=== PATIENT | female | born 1965 | race Caucasian/White ===

== ENCOUNTER → 2016-06-28 | Outpatient (CLI) | payer BC ==
--- NOTE | 2016-06-28 14:13 | MR ---
EXAMINATION: MR of the head without contrast. TECHNIQUE: Multiplanar and multisequence imaging of the head without intravenous contrast. Diffusion weighted sequences were performed. HISTORY: Hemiplegia. FINDINGS: The cerebral hemispheres and deep nuclei are without hemorrhage, mass, edema or atrophy. Small very subtle T2 FLAIR hyperintensities in the periventricular white matter. No evidence for restricted dif fusion. No extraaxial collections or hemorrhage. Ventricular system is of normal size and configuration wit hout hydrocephalus. The brainstem and cerebellum are without hemorrhage, mass, edema, gliosis or atr ophy. The carotid and basilar artery flow voids are intact. The otomastoid airspaces are clear. No internal auditory canal or cerebellopontine angle masses. Mi ld mucosal thickening noted within the right maxillary sinus. Craniocervical junction is unremarkable. IMPRESSION: 1. There are a few tiny periventricular and subcortical white matter FLAIR signal intensities, nonsp ecific, possibly early small vessel ischemic changes. 2. Otherwise no acute intracranial findings.
== END ==
LOC: MW.MRI 08:10
PROVIDERS: ATTEND Family Medicine
DX: G81.90 Hemiplegia, unspecified affecting unspecified side (principal)
CPT/HCPCS: 70551; 70551-26

== ENCOUNTER → 2016-07-17 | Outpatient (CLI) | payer BC | LOC: MW.RT 13:04 | PROVIDERS: ATTEND Family Medicine | DX: G81.90 Hemiplegia, unspecified affecting unspecified side (principal) | CPT/HCPCS: 95816 ==

== ENCOUNTER 2019-01-16 13:53 | Emergency (ER) | payer BC ==
[2019-01-16] MEDS ORDERED: Sodium Chloride 0.9% 1,000 ML IV ONE ×3 (14:12→16:01)
[2019-01-16] MEDS ORDERED: Ondansetron 4 MG/2 ML SDV IVPUSH ONE (14:12)
--- NOTE | 2019-01-16 14:15 | EDM.PDOC ---
ED HPI GENERAL MEDICAL PROBLEM - General Chief Complaint: Abdominal Pain Stated Complaint: VOMITING Time Seen by Provider: 01/16/19 14:15 Source of Information: Reports: Patient - History of Present Illness INITIAL COMMENTS - FREE TEXT/NARRATIVE: HISTORY AND PHYSICAL: History of present illness: [Patient presents with 2 days of abdominal pain 7 out of 10 nonradiating diffuse pain on exam worse on the left denies trauma recently started Celebrex otherwise no blood thinners no fever chills or sweats no chest pain shortness breath headache dizziness palpitation about a urine symptoms ] Review of systems: As per history of present illness and below otherwise all systems reviewed and negative. Past medical history: As per history of present illness and as reviewed below otherwise noncontributory. Surgical history: As per history of present illness and as reviewed below otherwise noncontributory. Social history: No reported history of drug or alcohol abuse. Family history: As per history of present illness and as reviewed below otherwise noncontributory.\ Physical exam: HEENT: Atraumatic, normocephalic, pupils reactive, negative for conjunctival pallor or scleral icterus, mucous membranes moist, throat clear, neck supple, nontender, trachea midline. Lungs: Clear to auscultation, breath sounds equal bilaterally, chest nontender. Heart: S1S2, regular, negative for clicks, rubs, or JVD. Abdomen: Soft, nondistendeddiffuse tenderness with focus on the left lower quadrantve for masses or hepatosplenomegaly. Negative for costovertebral tenderness. Pelvis: Stable nontender. Genitourinary: Deferred. Rectal: Deferred. Extremities: Atraumatic, negative for cords or calf pain. Neurovascular unremarkable. Neuro: Awake, alert, oriented. Cranial nerves II through XII unremarkable. Cerebellum unremarkable. Motor and sensory unremarkable throughout. Exam nonfocal. Diagnostics: [CC CMP INR UA CT abdomen pelvis no contrast ] Therapeutics: [ renal saline Insulin Zofran Morphine I did consult with Dr. Goddard recommends transfer for interventional radiology hematoma and hematology follow-up ] Impression: [ capsular hematoma with compression of left kidney Renal insufficiency Electrolyte abnormalities New-onset diabetes Hyperglycemia ] Definitive disposition and diagnosis as appropriate pending reevaluation and review of above. abdomen Pain Score (Numeric/FACES): 9 - Related Data Allergies Allergy/AdvReac Type Severity Reaction Status Date / Time No Known Allergies Allergy Verified 01/16/19 14:04 Home Meds: Home Meds Celecoxib [CeleBREX] 1 tab PO BID 01/16/19 [History] DULoxetine [Cymbalta] 1 tab PO BID 01/16/19 [History] LORazepam 0.5 mg PO ASDIRECTED PRN 01/16/19 [History] Metoprolol Succinate [Toprol XL 100mg] 100 mg PO DAILY 01/16/19 [History] busPIRone [Buspar] 15 mg PO BID 01/16/19 [History] Past Medical History HEENT History: Reports: Cataract Cardiovascular History: Reports: Hypertension Respiratory History: Reports: None Gastrointestinal History: Reports: None Genitourinary History: Reports: None 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: Musculoskeletal History: Reports: Arthritis Neurological History: Reports: None Psychiatric History: Reports: Anxiety, Depression Endocrine/Metabolic History: Reports: None Hematologic History: Reports: None Immunologic History: Reports: None Oncologic (Cancer) History: Reports: None Dermatologic History: Reports: None - Infectious Disease History Infectious Disease History: Reports: Chicken Pox - Past Surgical History Head Surgeries/Procedures: Reports: None HEENT Surgical History: Reports: Cataract Surgery Cardiovascular Surgical History: Reports: None Respiratory Surgical History: Reports: None GI Surgical History: Reports: None Female Surgical History: Reports: Section Endocrine Surgical History: Reports: None Neurological Surgical History: Reports: None Musculoskeletal Surgical History: Reports: None Oncologic Surgical History: Reports: None Dermatological Surgical History: Reports: None Social & Family History - Family History Family Medical History: Noncontributory - Tobacco Use Smoking Status *Q: Never Smoker Second Hand Smoke Exposure: No - Caffeine Use Caffeine Use: Reports: Energy Drinks - Recreational Drug Use Recreational Drug Use: No ED ROS GENERAL - Review of Systems Review Of Systems: See Below ED EXAM, GENERAL - Physical Exam Exam: See Below Course - Vital Signs Last Recorded V/S: Last Vital Signs Temp 96.3 F 01/16/19 14:01 Pulse 116 H 01/16/19 14:01 Resp 18 01/16/19 14:01 BP 167/90 H 01/16/19 14:01 Pulse Ox 100 01/16/19 14:01 - Orders/Labs/Meds Orders: Active Orders 24 hr Category Date Time Status Sodium Chloride 0.9% [Normal Saline] 1,000 ml Med 01/16/19 15:56 Active IV .Bolus Sodium Chloride 0.9% [Normal Saline] 1,000 ml Med 01/16/19 16:01 Ordered IV STAT Medication Orders Sodium Chloride (Normal Saline) 1,000 mls @ 999 mls/hr IV .Bolus ONE Stop: 01/16/19 16:56 Last Admin: 01/16/19 16:05 Dose: 999 mls/hr Sodium Chloride (Normal Saline) 1,000 mls @ 999 mls/hr IV STAT ONE Stop: 01/16/19 17:01 Last Admin: 01/16/19 16:05 Dose: Not Given Labs: Laboratory Tests 01/16/19 01/16/19 01/16/19 Range/Units 14:12 14:42 14:42 WBC 11.99 H (4.0-11.0) K/uL RBC 3.54 L (4.30-5.90) M/uL Hgb 9.7 L (12.0-16.0) g/dL Hct 29.2 L (36.0-46.0) % MCV 82.5 (80.0-98.0) fL MCH 27.4 (27.0-32.0) pg MCHC 33.2 (31.0-37.0) g/dL RDW Std Deviation 44.0 (28.0-62.0) fl RDW Coeff of Ho 14 (11.0-15.0) % Plt Count 225 (150-400) K/uL MPV 9.30 (7.40-12.00) fL Neut % (Auto) 88.5 H (48.0-80.0) % Lymph % (Auto) 5.8 L (16.0-40.0) % [place] % (Auto) 5.6 (0.0-15.0) % Eos % (Auto) 0.0 (0.0-7.0) % Baso % (Auto) 0.1 (0.0-1.5) % Neut # (Auto) 10.6 H (1.4-5.7) K/uL Lymph # (Auto) 0.7 (0.6-2.4) K/uL [place] # (Auto) 0.7 (0.0-0.8) K/uL Eos # (Auto) 0.0 (0.0-0.7) K/uL Baso # (Auto) 0.0 (0.0-0.1) K/uL Nucleated RBC % 0.0 /100WBC Nucleated RBCs # 0 K/uL INR Sodium 134 L (136-145) mmol/L Potassium 3.9 (3.5-5.1) mmol/L Chloride 97 L (98-107) mmol/L Carbon Dioxide 11.1 L (21.0-32.0) mmol/L BUN 26 H (7.0-18.0) mg/dL Creatinine 1.4 H (0.6-1.0) mg/dL Est Cr Clr Drug Dosing 40.59 mL/min Estimated GFR (MDRD) 39.5 ml/min Glucose 444 H (74-106) mg/dL POC Glucose (60-110) mg/dL Calcium 9.5 (8.5-10.1) mg/dL Total Bilirubin 0.9 (0.2-1.0) mg/dL AST 10 L (15-37) IU/L ALT 15 (14-63) IU/L Alkaline Phosphatase 121 H (46-116) U/L Troponin I <0.050 (0.000-0.056) ng/mL Total Protein 8.2 (6.4-8.2) g/dL Albumin 2.8 L (3.4-5.0) g/dL Globulin 5.4 H (2.6-4.0) g/dL Albumin/Globulin Ratio 0.5 L (0.9-1.6) Lipase 46 L (73-393) U/L Urine Color YELLOW Urine Appearance CLEAR Urine pH 5.5 (5.0-8.0) Ur Specific [place] 1.025 (1.001-1.035) Urine Protein TRACE H (NEGATIVE) mg/dL Urine Glucose (UA) 500 H (NEGATIVE) mg/dL Urine Ketones >=80 (NEGATIVE) mg/dL Urine Occult Blood LARGE H (NEGATIVE) Urine Nitrite NEGATIVE (NEGATIVE) Urine Bilirubin SMALL H (NEGATIVE) Urine Urobilinogen 0.2 (<2.0) EU/dL Ur Leukocyte Esterase NEGATIVE (NEGATIVE) Urine RBC 3-4 (0-2/HPF) Urine WBC 20-42 (0-5/HPF) Ur Epithelial Cells FEW (NONE-FEW) Amorphous Sediment FEW (NEGATIVE) Urine Bacteria 2+ H (NEGATIVE) Urine Mucus FEW (NONE-MOD) Urine Trichomonas (NEGATIVE) 01/16/19 01/16/19 01/16/19 Range/Units 16:00 16:10 16:47 WBC (4.0-11.0) K/uL RBC (4.30-5.90) M/uL Hgb (12.0-16.0) g/dL Hct (36.0-46.0) % MCV (80.0-98.0) fL MCH (27.0-32.0) pg MCHC (31.0-37.0) g/dL RDW Std Deviation (28.0-62.0) fl RDW Coeff of Ho (11.0-15.0) % Plt Count (150-400) K/uL MPV (7.40-12.00) fL Neut % (Auto) (48.0-80.0) % Lymph % (Auto) (16.0-40.0) % [place] % (Auto) (0.0-15.0) % Eos % (Auto) (0.0-7.0) % Baso % (Auto) (0.0-1.5) % Neut # (Auto) (1.4-5.7) K/uL Lymph # (Auto) (0.6-2.4) K/uL [place] # (Auto) (0.0-0.8) K/uL Eos # (Auto) (0.0-0.7) K/uL Baso # (Auto) (0.0-0.1) K/uL Nucleated RBC % /100WBC Nucleated RBCs # K/uL INR 0.98 Sodium (136-145) mmol/L Potassium (3.5-5.1) mmol/L Chloride (98-107) mmol/L Carbon Dioxide (21.0-32.0) mmol/L BUN (7.0-18.0) mg/dL Creatinine (0.6-1.0) mg/dL Est Cr Clr Drug Dosing mL/min Estimated GFR (MDRD) ml/min Glucose (74-106) mg/dL POC Glucose 371 H 319 H (60-110) mg/dL Calcium (8.5-10.1) mg/dL Total Bilirubin (0.2-1.0) mg/dL AST (15-37) IU/L ALT (14-63) IU/L Alkaline Phosphatase (46-116) U/L Troponin I (0.000-0.056) ng/mL Total Protein (6.4-8.2) g/dL Albumin (3.4-5.0) g/dL Globulin (2.6-4.0) g/dL Albumin/Globulin Ratio (0.9-1.6) Lipase (73-393) U/L Urine Color Urine Appearance Urine pH (5.0-8.0) Ur Specific [place] (1.001-1.035) Urine Protein (NEGATIVE) mg/dL Urine Glucose (UA) (NEGATIVE) mg/dL Urine Ketones (NEGATIVE) mg/dL Urine Occult Blood (NEGATIVE) Urine Nitrite (NEGATIVE) Urine Bilirubin (NEGATIVE) Urine Urobilinogen (<2.0) EU/dL Ur Leukocyte Esterase (NEGATIVE) Urine RBC (0-2/HPF) Urine WBC (0-5/HPF) Ur Epithelial Cells (NONE-FEW) Amorphous Sediment (NEGATIVE) Urine Bacteria (NEGATIVE) Urine Mucus (NONE-MOD) Urine Trichomonas (NEGATIVE) Meds: Medications Generic Name Dose Route Start Last Admin Trade Name Freq PRN Reason Stop Dose Admin Sodium Chloride 1,000 mls @ 999 mls/hr 01/16/19 15:56 01/16/19 16:05 Normal Saline IV 01/16/19 16:56 999 mls/hr .Bolus ONE Administration Sodium Chloride 1,000 mls @ 999 mls/hr 01/16/19 16:01 01/16/19 16:05 Normal Saline IV 01/16/19 17:01 Not Given STAT ONE Discontinued Medications Generic Name Dose Route Start Last Admin Trade Name Freq PRN Reason Stop Dose Admin Sodium Chloride 1,000 mls @ 999 mls/hr 01/16/19 14:12 01/16/19 14:46 Normal Saline IV 01/16/19 15:12 999 mls/hr STAT ONE Administration Insulin Human Regular 10 unit 01/16/19 15:53 01/16/19 16:06 Novolin R IVPUSH 01/16/19 15:54 5 units ONETIME ONE Administration Protocol Insulin Human Regular Confirm 01/16/19 16:13 01/16/19 16:20 Novolin R Administered 01/16/19 16:14 Not Given Dose 1,000 unit .ROUTE .STK-MED ONE Morphine Sulfate 2 mg 01/16/19 15:33 01/16/19 15:41 Morphine IVPUSH 01/16/19 15:34 2 mg ONETIME ONE Administration Ondansetron HCl 8 mg 01/16/19 14:12 01/16/19 14:47 Zofran IVPUSH 01/16/19 14:13 8 mg ONETIME ONE Administration Departure - Departure Time of Disposition: 16:51 Disposition: DC/Tfer to Acute Hospital 02 Condition: Fair Clinical Impression: Hematoma, Dehydration, Diabetes - Discharge Information Referrals: Zhane Painter DO [Primary Care Provider] - Forms: ED Department Discharge - My Orders Last 24 Hours: My Active Orders 01/16/19 15:56 Sodium Chloride 0.9% [Normal Saline] 1,000 ml IV .Bolus 01/16/19 16:01 Sodium Chloride 0.9% [Normal Saline] 1,000 ml IV STAT - Assessment/Plan Last 24 Hours: My Active Orders 01/16/19 15:56 Sodium Chloride 0.9% [Normal Saline] 1,000 ml IV .Bolus 01/16/19 16:01 Sodium Chloride 0.9% [Normal Saline] 1,000 ml IV STAT
[2019-01-16 15:18] LABS: BLOOD UREA NITROGEN,BUN 26 mg/dL (7.0-18.0); CARBON DIOXIDE,CO2 11.1 mmol/L (21.0-32.0); CHLORIDE,CL 97 mmol/L (98-107); GLUCOSE RANDOM 444 mg/dL (74-106); LIPASE 46 U/L (73-393); POTASSIUM,K 3.9 mmol/L (3.5-5.1); SODIUM,NA 134 mmol/L (136-145)
[2019-01-16] MEDS ORDERED: Morphine 2 MG/ML Syringe IVPUSH ONE ×2 (15:33→16:56)
--- NOTE | 2019-01-16 15:33 | CT ---
EXAM DATE: 01/16/19 PATIENT'S AGE: 53 CT abdomen and pelvis Technique: Multiple axial sections were obtained from above the dome of the diaphragm inferiorly through the pubic symphysis. Intravenous and oral contrast not utilized. Findings: Acute subcapsular hematoma is identified within the left kidney. This compresses the left kidney. Haziness is noted around the left kidney is seen believed to be the result of the hematoma. Right kidney appears unremarkable. Gallbladder appears distended. No shadowing gallstones are seen. Visualized lung bases showed nothing acute. Liver contains no focal abnormality. Spleen appears within normal limits. Adrenal glands show no nodule. Pancreas appears within normal limits. Aorta shows atherosclerotic change which continues into the iliac vessels. No aneurysm is seen. No retroperitoneal adenopathy or mesenteric abnormalities are seen. No pelvic mass or adenopathy is seen. Sterilization clips are incidentally noted within the pelvis. Appendix is seen and appears normal in size. No free fluid is seen. Bone window settings were reviewed which shows mild degenerative change scattered within the spine. Degenerative change is most prominent at L5-S1 with vacuum phenomena. Impression: 1. Large acute subcapsular hematoma. This subcapsular hematoma compresses the left kidney and causes mild increased density around the left kidney within the adjacent perirenal fat. 2. Dilated gallbladder. Uncertain if this is pathologic or due to fasting. 3. Other findings as noted above which are believed to be incidental. Diagnostic code #5 Report Signed by Proxy. [facility]ITALKiesha
[2019-01-16] MEDS ORDERED: Insulin Regular, Human 100 Units/ML 10 ML Vial IVPUSH ONE ×2 (15:53→16:57)
[2019-01-16] MEDS ORDERED: Insulin Regular, Human 100 Units/ML 10 ML Vial ONE (16:13)
[2019-01-16] MEDS ORDERED: Sodium Chloride 0.9% 1,000 ML IV SCH ×2 (17:00)
== END 2019-01-16 17:25 ==
LOC: MW.ED 13:53
DX: S37.012A Minor contusion of left kidney, initial encounter (principal); E86.0 Dehydration; E11.65 Type 2 diabetes mellitus with hyperglycemia; N28.9 Disorder of kidney and ureter, unspecified; E87.8 Other disorders of electrolyte and fluid balance, not elsewhere classified; I10 Essential (primary) hypertension; F41.9 Anxiety disorder, unspecified; F32.9 Major depressive disorder, single episode, unspecified; Z79.899 Other long term (current) drug therapy; X58.XXXA Exposure to other specified factors, initial encounter
CPT/HCPCS: 36415; 74176; 80053; 81001; 82962; 83690; 84484; 85025; 85610; 96361; 96374; 96375; 96376; 99285; J1815; J2270; J2405; J7040; 99284

== ENCOUNTER 2019-10-09 16:25 | Emergency (ER) | payer BC ==
[2019-10-09] MEDS ORDERED: Morphine 4 MG/ML Syringe IVPUSH ONE ×2 (17:15→19:15)
[2019-10-09] MEDS ORDERED: Ondansetron 4 MG/2 ML SDV IVPUSH ONE (17:15)
[2019-10-09] MEDS ORDERED: Sodium Chloride 0.9% 1,000 ML IV STA (17:15)
[2019-10-09 17:44] LABS: BLOOD UREA NITROGEN,BUN 14 mg/dL (7.0-18.0); CARBON DIOXIDE,CO2 27.9 mmol/L (21.0-32.0); CHLORIDE,CL 95 mmol/L (98-107); GLUCOSE RANDOM 124 mg/dL (74-106); SODIUM,NA 133 mmol/L (136-145)
--- NOTE | 2019-10-09 18:47 | EDM.PDOC ---
ED HPI GENERAL MEDICAL PROBLEM - General Chief Complaint: General Stated Complaint: PAIN/VOMITING Time Seen by Provider: 10/09/19 17:32 Source of Information: Reports: Patient History Limitations: Reports: No Limitations - History of Present Illness INITIAL COMMENTS - FREE TEXT/NARRATIVE: 54-year-old female with history of left renal abscess presents with left flank pain for 2 weeks. Associated with nausea, vomiting x3 today. Pain has been getting worse over the last 2 weeks, pain is constant, nonradiating. She denies fever, chills, dysuria, hematuria, urinary frequency. Patient was previously sent to [place] for treatment for her left renal abscess, it was drained and she had a PICC line placed. She moved back here in August. ROS: A 10-point review of systems, other than pertinent positives and negatives as stated per HPI, is otherwise negative Past medical history: No additional pertinent history Past Surgical history: No additional pertinent history Social history: No additional pertinent history Family history: No additional pertinent history PHYSICAL EXAM General: AOx4, GCS = 15, mild distress HEENT: dry mucous membrane Neck: supple, no meningismus, no Kernig or Brudzinski Cardiac: S1S2 RRR Respiratory: CTAB, no crackles or rales, no wheezing Abdomen: Soft, no RUQ ttp, nontender, no rebound or guarding, nondistended, no pulsatile mass. Back: left CVAT Musculoskeletal: NVI distally, no deformity Neuro: No focal deficits, CN 2 - 12 WNL. Left kidney Pain Score (Numeric/FACES): 8 - Related Data Allergies Allergy/AdvReac Type Severity Reaction Status Date / Time No Known Allergies Allergy Verified 10/09/19 16:50 Home Meds: Home Meds LORazepam 0.5 mg PO ASDIRECTED PRN 01/16/19 [History] Metoprolol Succinate [Toprol XL 100mg] 100 mg PO DAILY 01/16/19 [History] busPIRone [Buspar] 15 mg PO BID 01/16/19 [History] Acetaminophen/oxyCODONE [Percocet 325-5 MG] 1 each PO Q6H #12 tab 10/09/19 [Rx] Ondansetron [Zofran ODT] 4 mg PO Q6H PRN #15 tab.dis 10/09/19 [Rx] cephALEXin [Keflex] 500 mg PO Q6H #40 cap 10/09/19 [Rx] Past Medical History HEENT History: Reports: Cataract Cardiovascular History: Reports: Hypertension Respiratory History: Reports: None Gastrointestinal History: Reports: None Genitourinary History: Reports: Other (See Below) Other Genitourinary History: abscess on left kidney 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: Musculoskeletal History: Reports: Arthritis Neurological History: Reports: None Psychiatric History: Reports: Anxiety, Depression Endocrine/Metabolic History: Reports: None Hematologic History: Reports: None Immunologic History: Reports: None Oncologic (Cancer) History: Reports: None Dermatologic History: Reports: None - Infectious Disease History Infectious Disease History: Reports: Chicken Pox - Past Surgical History Head Surgeries/Procedures: Reports: None HEENT Surgical History: Reports: Cataract Surgery Cardiovascular Surgical History: Reports: None Respiratory Surgical History: Reports: None GI Surgical History: Reports: None Female Surgical History: Reports: Section Endocrine Surgical History: Reports: None Neurological Surgical History: Reports: None Musculoskeletal Surgical History: Reports: None Oncologic Surgical History: Reports: None Dermatological Surgical History: Reports: None Social & Family History - Family History Family Medical History: Noncontributory - Tobacco Use Smoking Status *Q: Never Smoker Second Hand Smoke Exposure: No - Caffeine Use Caffeine Use: Reports: Coffee, Energy Drinks, Soda, Tea - Recreational Drug Use Recreational Drug Use: No ED ROS GENERAL - Review of Systems Review Of Systems: Comprehensive ROS is negative, except as noted in HPI. ED EXAM, GENERAL - Physical Exam Exam: See Below (see dictation) Course - Vital Signs Last Recorded V/S: Last Vital Signs Temp 98.2 F 10/09/19 16:51 Pulse 73 10/09/19 16:51 Resp 18 10/09/19 16:51 BP 131/75 10/09/19 16:51 Pulse Ox 96 10/09/19 16:51 - Orders/Labs/Meds Orders: Active Orders 24 hr Category Date Time Status UA RFX FAITH AND CULT IF INDIC [URIN] Stat Lab 10/09/19 16:59 Ordered Morphine Med 10/09/19 19:15 Once 4 mg IVPUSH ONETIME ONE Labs: Laboratory Tests 10/09/19 10/09/19 Range/Units 17:13 17:13 WBC 8.75 (4.0-11.0) K/uL RBC 4.00 L (4.30-5.90) M/uL Hgb 11.7 L (12.0-16.0) g/dL Hct 33.4 L (36.0-46.0) % MCV 83.5 (80.0-98.0) fL MCH 29.3 (27.0-32.0) pg MCHC 35.0 (31.0-37.0) g/dL RDW Std Deviation 39.8 (28.0-62.0) fl RDW Coeff of Ho 13 (11.0-15.0) % Plt Count 183 (150-400) K/uL MPV 9.10 (7.40-12.00) fL Neut % (Auto) 70.3 (48.0-80.0) % Lymph % (Auto) 18.4 (16.0-40.0) % [place] % (Auto) 10.6 (0.0-15.0) % Eos % (Auto) 0.6 (0.0-7.0) % Baso % (Auto) 0.1 (0.0-1.5) % Neut # (Auto) 6.2 H (1.4-5.7) K/uL Lymph # (Auto) 1.6 (0.6-2.4) K/uL [place] # (Auto) 0.9 H (0.0-0.8) K/uL Eos # (Auto) 0.1 (0.0-0.7) K/uL Baso # (Auto) 0.0 (0.0-0.1) K/uL Nucleated RBC % 0.0 /100WBC Nucleated RBCs # 0 K/uL Sodium 133 L (136-145) mmol/L Potassium 4.0 (3.5-5.1) mmol/L Chloride 95 L (98-107) mmol/L Carbon Dioxide 27.9 (21.0-32.0) mmol/L BUN 14 (7.0-18.0) mg/dL Creatinine 0.7 (0.6-1.0) mg/dL Est Cr Clr Drug Dosing 80.26 mL/min Estimated GFR (MDRD) > 60.0 ml/min Glucose 124 H (74-106) mg/dL Calcium 8.8 (8.5-10.1) mg/dL Total Bilirubin 0.9 (0.2-1.0) mg/dL AST 64 H (15-37) IU/L ALT 24 (14-63) IU/L Alkaline Phosphatase 68 (46-116) U/L Total Protein 7.3 (6.4-8.2) g/dL Albumin 3.4 (3.4-5.0) g/dL Globulin 3.9 (2.6-4.0) g/dL Albumin/Globulin Ratio 0.9 (0.9-1.6) Meds: Medications Discontinued Medications Generic Name Dose Route Start Last Admin Trade Name Freq PRN Reason Stop Dose Admin Ceftriaxone Sodium 1 gm 10/09/19 19:08 Rocephin IVPUSH 10/09/19 19:09 ONETIME ONE Sodium Chloride 1,000 mls @ 999 mls/hr 10/09/19 17:15 10/09/19 17:27 Normal Saline IV 10/09/19 18:15 999 mls/hr STAT STA Administration Iopamidol 100 ml 10/09/19 18:59 10/09/19 18:59 Isovue-370 (76%) IVPUSH 10/09/19 19:00 100 ml ONETIME ONE Administration Morphine Sulfate 4 mg 10/09/19 17:15 10/09/19 17:29 Morphine IVPUSH 10/09/19 17:16 4 mg ONETIME ONE Administration Ondansetron HCl 4 mg 10/09/19 17:15 10/09/19 17:29 Zofran IVPUSH 10/09/19 17:16 4 mg ONETIME ONE Administration - Re-Assessments/Exams Free Text/Narrative Re-Assessment/Exam: 10/09/19 19:16 After IV pain meds and rocephin, she improved clinically and is stable for discharge. I performed a repeat examination and the patient has not demonstrated any new abnormal findings. Patient exhibits normal vital signs and has exhibited a normal gait. I advised the patient to return to the ER for reevaluation if symptoms worsened, and to follow up with their PCP within 2-3 days. I gave her strict return precautions for fever, nausea, vomiting, intractable flank pain, worsening pain. MEDICAL DECISION MAKING: I reviewed the patients past medical records, lab and radiographic findings. I discussed the case with the patient. My differential diagnosis included: Renal abscess, pyelonephritis, UTI. CT with contrast did not demonstrate renal access, findings are more consistent with pyelonephritis, she is hemodynamically stable, not febrile or tachycardic or demonstrating leukocytosis. Her pain improved with IV pain meds, she is not vomiting in the ER, I believe she is clinically well enough for oral antibiotic and outpatient treatment for her pyelonephritis. I gave her strict return precautions for worsening pain, fever, chills, nausea, vomiting. Departure - Departure Time of Disposition: 19:18 Disposition: Home, Self-Care 01 Condition: Good Clinical Impression: Pyelonephritis - Discharge Information *PRESCRIPTION DRUG MONITORING PROGRAM REVIEWED*: Not Applicable *COPY OF PRESCRIPTION DRUG MONITORING REPORT IN PATIENT AGUSTIN: Not Applicable Prescriptions: cephALEXin [Keflex] 500 mg PO Q6H #40 cap Acetaminophen/oxyCODONE [Percocet 325-5 MG] 1 each PO Q6H #12 tab Ondansetron [Zofran ODT] 4 mg PO Q6H PRN #15 tab.dis PRN Reason: Vomiting Instructions: Pyelonephritis, Adult, [id number] Referrals: Zhane Painter DO [Primary Care Provider] - Forms: ED Department Discharge Sepsis Event Note (ED) - Evaluation Sepsis Screening Result: No Definite Risk - Focused Exam Vital Signs: Vital Signs Temp Pulse Resp BP Pulse Ox 10/09/19 16:51 98.2 F 73 18 131/75 96 - My Orders Last 24 Hours: My Active Orders 10/09/19 16:59 UA RFX FAITH AND CULT IF INDIC [URIN] Stat 10/09/19 19:15 Morphine 4 mg IVPUSH ONETIME ONE - Assessment/Plan Last 24 Hours: My Active Orders 10/09/19 16:59 UA RFX FAITH AND CULT IF INDIC [URIN] Stat 10/09/19 19:15 Morphine 4 mg IVPUSH ONETIME ONE
--- NOTE | 2019-10-09 18:58 | CT ---
CT abdomen and pelvis Technique: Multiple axial sections were obtained from above the dome of the diaphragm inferiorly through the pubic symphysis. Intravenous contrast was utilized. No oral contrast has been given. Findings: Visualized lung bases show nothing acute. Liver contains no focal abnormality. Increased density is noted within the gallbladder most likely due to sludge. Gallbladder is also slightly dilated. Spleen is normal. Adrenal glands show no nodule. There is inflammatory change around the left kidney raising the possibility of possible pyelonephritis. Right kidney shows no abnormality. No ureteral dilatation or ureteral stone is seen. Aorta shows atherosclerotic calcification without aneurysm. No retroperitoneal adenopathy or mesenteric abnormalities are seen. Appendix is felt to be visualized and is normal in size. No pelvic mass or adenopathy is seen. No free fluid or inflammatory change is appreciated. Sterilization clips are incidentally noted within the pelvis. Bone window settings were reviewed which shows disc space narrowing and vacuum phenomena at L5-S1. No acute osseous finding is appreciated. Impression: 1. Inflammatory change around the left kidney suspicious for pyelonephritis. 2. Dilated gallbladder with increased density suggesting sludge. 3. No other acute abnormality is appreciated. Other nonacute findings as noted above. Diagnostic code #3 This report was dictated in MDT
[2019-10-09] MEDS ORDERED: Iopamidol 755 Mg/ML 100 ML Bottle IVPUSH ONE (18:59)
[2019-10-09] MEDS ORDERED: cefTRIAXone 1 GM Vial IVPUSH ONE (19:08)
[2019-10-09] MEDS ORDERED: cefTRIAXone 1 GM in Premix Bag 1 BAG IV ONE (19:22)
== END 2019-10-09 20:10 | disposition home or self-care (01) ==
LOC: MW.ED 16:25
DX: N12 Tubulo-interstitial nephritis, not specified as acute or chronic (principal); I10 Essential (primary) hypertension; F32.9 Major depressive disorder, single episode, unspecified; Z79.899 Other long term (current) drug therapy; F41.9 Anxiety disorder, unspecified
CPT/HCPCS: 36415; 74177; 80053; 81001; 85025; 87086; 96361; 96365; 96375; 96376; 99284; J0696; J2270; J2405; J7030; Q9967; 99283

== ENCOUNTER 2020-02-20 16:39 | Emergency (ER) | payer BC ==
[2020-02-20] MEDS ORDERED: Sodium Chloride 0.9% 10 ML Syringe FLUSH PRN (18:01)
[2020-02-20] MEDS ORDERED: Sodium Chloride 0.9% 2.5 ML Syringe FLUSH PRN (18:01)
[2020-02-20] MEDS ORDERED: Sodium Chloride 0.9% 1,000 ML IV ONE (18:01)
[2020-02-20] MEDS ORDERED: Ketorolac 30 MG/ML SDV IVPUSH ONE (18:02)
--- NOTE | 2020-02-20 18:27 | EDM.PDOC ---
ED HPI GENERAL MEDICAL PROBLEM - General Chief Complaint: Genitourinary Problem Stated Complaint: KIDNEY PAIN Time Seen by Provider: 02/20/20 16:56 Source of Information: Reports: Patient History Limitations: Reports: No Limitations - History of Present Illness INITIAL COMMENTS - FREE TEXT/NARRATIVE: HISTORY AND PHYSICAL: History of present illness: Patient is a 54-year-old female who presents to the ED today with concern of left-sided flank pain that has been ongoing for the past 1 month but worsened over the past 1 day. Patient states that she has had a prior abscess on her left kidney and that her symptoms today feel similar to when she had the abscess however her symptoms are more sharp and more sudden onset in nature, similar to when shes had a kidney infection vs kidney stone. Patient denies any trauma or injury to her left side and states that ever since she has had the abscess of her left kidney, she has had chronic left flank pain. Patient states she also feels nauseous and has vomited x 1 today. Patient states that this has worsened over the past 1 day and is more significant so came to the emergency room for further evaluation. Patient states she has a history of type 2 diabetes and hypertension. Patient denies fever, chills, chest pain, shortness of breath, or cough. Denies headache, neck stiff ness, change in vision, syncope, or near syncope. Denies diarrhea, constipation, or dysuria. Has not noted any blood in urine or stool. Review of systems: As per history of present illness and below otherwise all systems reviewed and negative. Past medical history: As per history of present illness and as reviewed below otherwise noncontributory. Surgical history: As per history of present illness and as reviewed below otherwise noncontr ibutory. Social history: See social history for further information Family history: As per history of present illness and as reviewed below otherwise noncontributory. Physical exam: General: Patient is alert, oriented, and in no acute distress. Patient sitting on exam table, tearful on exam holding left flank area. HEENT: Atraumatic, normocephalic, pupils equal and reactive bilaterally, negat westley for conjunctival pallor or scleral icterus, mucous membranes moist, TMs normal bilaterally, throat clear, neck supple, nontender, trachea midline. No drooling or trismus noted. No meningeal signs. No hot potato voice noted. Lungs: Clear to auscultation, breath sounds equal bilaterally, chest nontender. Heart: S1S2, regular rate and rhythm without overt murmur Abdomen: Soft, nondistended, nontender. Negative for masses or hepatosplenomegaly. Positive for costovertebral tenderness of the left. Pelvis: Stable nontender. Genitourinary: Deferred. Rectal: Deferred. Skin: Intact, warm, dry. No lesions or rashes noted. Extremities: Atraumatic, negative for cords or calf pain. Neurovascular unremarkable. Neuro: Awake, alert, oriented. Cranial nerves II through XII unremarkable. Cerebellum unremarkable. Motor and sensory unremarkable throughout. Exam nonfocal. Notes: See Dr. Davis's official dictation for EKG interpretation. Admission for observation was offered to patient but she declines at this time. All risks vs benefits discussed with patient and expresses understanding. Discussed the importance for follow up with a primary care provider. Strict return precautions thoroughly discussed with patient. Voices understanding and is agreeable to plan of care. Denies any further questions or concerns at this time. Diagnostics: EKG, CBC, CMP, UA, Uhcg, CXR, Trop, Lipase, Abd/pelvic CT w/o cont Therapeutics: NS, Toradol, Morphine Prescription: Bactrim DS, Zofran, Tramadol (#10) Impression: Pyelonephritis Plan: 1. Take medication as prescribed. You can also alternate ibuprofen and Tylenol as directed for pain and discomfort. 2. Follow-up with your primary care provider as discussed. Return to the ED as needed and as discussed. Definitive disposition and diagnosis as appropriate pending reevaluation and review of above. left flank pain Pain Score (Numeric/FACES): 8 - Related Data Allergies Allergy/AdvReac Type Severity Reaction Status Date / Time No Known Allergies Allergy Verified 02/20/20 17:17 Home Meds: Home Meds LORazepam 0.5 mg PO ASDIRECTED PRN 01/16/19 [History] Metoprolol Succinate [Toprol XL 100mg] 100 mg PO DAILY 01/16/19 [History] busPIRone [Buspar] 15 mg PO BID 01/16/19 [History] Acetaminophen/oxyCODONE [Percocet 325-5 MG] 1 each PO Q6H #12 tab 10/09/19 [Rx] Ondansetron [Zofran ODT] 4 mg PO Q6H PRN #15 tab.dis 10/09/19 [Rx] Ondansetron [Zofran ODT] 4 mg PO Q6H PRN #8 tab.dis 02/20/20 [Rx] Sulfamethoxazole/Trimethoprim [Bactrim Ds Tablet] 1 each PO BID 14 Days #28 tablet 02/20/20 [Rx] traMADol HCl [Tramadol HCl] 50 mg PO Q6H PRN #10 tablet 02/20/20 [Rx] Past Medical History HEENT History: Reports: Cataract Cardiovascular History: Reports: Hypertension Respiratory History: Reports: None Gastrointestinal History: Reports: None Genitourinary History: Reports: UTI, Recurrent, Other (See Below) Other Genitourinary History: abscess on left kidney 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: Musculoskeletal History: Reports: Arthritis Neurological History: Reports: None Psychiatric History: Reports: Anxiety, Depression Endocrine/Metabolic History: Reports: None, Diabetes, Type II Hematologic History: Reports: None Immunologic History: Reports: None Oncologic (Cancer) History: Reports: None Dermatologic History: Reports: None - Infectious Disease History Infectious Disease History: Reports: Chicken Pox - Past Surgical History Head Surgeries/Procedures: Reports: None HEENT Surgical History: Reports: Cataract Surgery Cardiovascular Surgical History: Reports: None Respiratory Surgical History: Reports: None GI Surgical History: Reports: None Female Surgical History: Reports: Section Endocrine Surgical History: Reports: None Neurological Surgical History: Reports: None Musculoskeletal Surgical History: Reports: None Oncologic Surgical History: Reports: None Dermatological Surgical History: Reports: None Social & Family History - Family History Family Medical History: No Pertinent Family History - Caffeine Use Caffeine Use: Reports: Coffee, Energy Drinks, Soda, Tea - Recreational Drug Use Recreational Drug Use: No ED ROS GENERAL - Review of Systems Review Of Systems: Comprehensive ROS is negative, except as noted in HPI. ED EXAM, GENERAL - Physical Exam Exam: See Below (see dictation) Course - Vital Signs Last Recorded V/S: Last Vital Signs Temp 96.5 F L 02/20/20 17:10 Pulse 68 02/20/20 18:45 Resp 17 02/20/20 18:45 BP 118/67 02/20/20 18:45 Pulse Ox 94 L 02/20/20 18:45 - Orders/Labs/Meds Orders: Active Orders 24 hr Category Date Time Status EKG Documentation Completion [RC] STAT Care 02/20/20 18:02 Active CULTURE URINE [RM] Stat Lab 02/20/20 16:30 Received Sodium Chloride 0.9% [Saline Flush] Med 02/20/20 18:01 Active 10 ml FLUSH ASDIRECTED PRN Sodium Chloride 0.9% [Saline Flush] Med 02/20/20 18:01 Active 2.5 ml FLUSH ASDIRECTED PRN Saline Lock Insert [OM.PC] Stat Oth 02/20/20 18:01 Ordered Medication Orders Sodium Chloride (Saline Flush) 10 ml FLUSH ASDIRECTED PRN PRN Reason: Keep Vein Open Last Admin: 02/20/20 18:39 Dose: 10 ml Documented by: HOLLY Sodium Chloride (Saline Flush) 2.5 ml FLUSH ASDIRECTED PRN PRN Reason: Keep Vein Open Last Admin: 02/20/20 18:39 Dose: 2.5 ml Documented by: HOLLY Labs: Laboratory Tests 02/20/20 02/20/20 02/20/20 Range/Units 16:30 16:30 18:32 WBC 4.07 (4.0-11.0) K/uL RBC 4.58 (4.30-5.90) M/uL Hgb 13.1 (12.0-16.0) g/dL Hct 38.1 (36.0-46.0) % MCV 83.2 (80.0-98.0) fL MCH 28.6 (27.0-32.0) pg MCHC 34.4 (31.0-37.0) g/dL RDW Std Deviation 40.2 (28.0-62.0) fl RDW Coeff of Ho 14 (11.0-15.0) % Plt Count 160 (150-400) K/uL MPV 9.40 (7.40-12.00) fL Neut % (Auto) 54.2 (48.0-80.0) % Lymph % (Auto) 29.0 (16.0-40.0) % [place] % (Auto) 13.8 (0.0-15.0) % Eos % (Auto) 2.0 (0.0-7.0) % Baso % (Auto) 1.0 (0.0-1.5) % Neut # (Auto) 2.2 (1.4-5.7) K/uL Lymph # (Auto) 1.2 (0.6-2.4) K/uL Pra[place] # (Auto) 0.6 (0.0-0.8) K/uL Eos # (Auto) 0.1 (0.0-0.7) K/uL Baso # (Auto) 0.0 (0.0-0.1) K/uL Nucleated RBC % 0.0 /100WBC Nucleated RBCs # 0 K/uL Sodium (136-145) mmol/L Potassium (3.5-5.1) mmol/L Chloride (98-107) mmol/L Carbon Dioxide (21.0-32.0) mmol/L BUN (7.0-18.0) mg/dL Creatinine (0.6-1.0) mg/dL Est Cr Clr Drug Dosing mL/min Estimated GFR (MDRD) ml/min Glucose (74-106) mg/dL Calcium (8.5-10.1) mg/dL Total Bilirubin (0.2-1.0) mg/dL AST (15-37) IU/L ALT (14-63) IU/L Alkaline Phosphatase (46-116) U/L Troponin I (0.000-0.056) ng/mL Total Protein (6.4-8.2) g/dL Albumin (3.4-5.0) g/dL Globulin (2.6-4.0) g/dL Albumin/Globulin Ratio (0.9-1.6) Lipase (73-393) U/L Urine Color YELLOW Urine Appearance CLEAR Urine pH 6.5 (5.0-8.0) Ur Specific [place] 1.010 (1.001-1.035) Urine Protein NEGATIVE (NEGATIVE) mg/dL Urine Glucose (UA) NEGATIVE (NEGATIVE) mg/dL Urine Ketones NEGATIVE (NEGATIVE) mg/dL Urine Occult Blood NEGATIVE (NEGATIVE) Urine Nitrite NEGATIVE (NEGATIVE) Urine Bilirubin NEGATIVE (NEGATIVE) Urine Urobilinogen 0.2 (<2.0) EU/dL Ur Leukocyte Esterase SMALL H (NEGATIVE) Urine RBC 0-2 (0-2/HPF) Urine WBC 2-4 (0-5/HPF) Ur Epithelial Cells FEW (NONE-FEW) Urine Bacteria FEW (NEGATIVE) Urine HCG, Qual NEGATIVE (NEGATIVE) 02/20/20 Range/Units 18:32 WBC (4.0-11.0) K/uL RBC (4.30-5.90) M/uL Hgb (12.0-16.0) g/dL Hct (36.0-46.0) % MCV (80.0-98.0) fL MCH (27.0-32.0) pg MCHC (31.0-37.0) g/dL RDW Std Deviation (28.0-62.0) fl RDW Coeff of Ho (11.0-15.0) % Plt Count (150-400) K/uL MPV (7.40-12.00) fL Neut % (Auto) (48.0-80.0) % Lymph % (Auto) (16.0-40.0) % Prairie % (Auto) (0.0-15.0) % Eos % (Auto) (0.0-7.0) % Baso % (Auto) (0.0-1.5) % Neut # (Auto) (1.4-5.7) K/uL Lymph # (Auto) (0.6-2.4) K/uL Pra[place] # (Auto) (0.0-0.8) K/uL Eos # (Auto) (0.0-0.7) K/uL Baso # (Auto) (0.0-0.1) K/uL Nucleated RBC % /100WBC Nucleated RBCs # K/uL Sodium 140 (136-145) mmol/L Potassium 4.1 (3.5-5.1) mmol/L Chloride 101 (98-107) mmol/L Carbon Dioxide 25.7 (21.0-32.0) mmol/L BUN 16 (7.0-18.0) mg/dL Creatinine 1.1 H (0.6-1.0) mg/dL Est Cr Clr Drug Dosing 51.07 mL/min Estimated GFR (MDRD) 52.0 ml/min Glucose 145 H (74-106) mg/dL Calcium 9.2 (8.5-10.1) mg/dL Total Bilirubin 0.4 (0.2-1.0) mg/dL AST 33 (15-37) IU/L ALT 43 (14-63) IU/L Alkaline Phosphatase 64 (46-116) U/L Troponin I < 0.050 (0.000-0.056) ng/mL Total Protein 7.2 (6.4-8.2) g/dL Albumin 3.6 (3.4-5.0) g/dL Globulin 3.6 (2.6-4.0) g/dL Albumin/Globulin Ratio 1.0 (0.9-1.6) Lipase 74 (73-393) U/L Urine Color Urine Appearance Urine pH (5.0-8.0) Ur Specific [place] (1.001-1.035) Urine Protein (NEGATIVE) mg/dL Urine Glucose (UA) (NEGATIVE) mg/dL Urine Ketones (NEGATIVE) mg/dL Urine Occult Blood (NEGATIVE) Urine Nitrite (NEGATIVE) Urine Bilirubin (NEGATIVE) Urine Urobilinogen (<2.0) EU/dL Ur Leukocyte Esterase (NEGATIVE) Urine RBC (0-2/HPF) Urine WBC (0-5/HPF) Ur Epithelial Cells (NONE-FEW) Urine Bacteria (NEGATIVE) Urine HCG, Qual (NEGATIVE) Meds: Medications Generic Name Dose Route Start Last Admin Trade Name Freq PRN Reason Stop Dose Admin Sodium Chloride 10 ml 02/20/20 18:01 02/20/20 18:39 Saline Flush FLUSH 10 ml ASDIRECTED PRN Administration Keep Vein Open Sodium Chloride 2.5 ml 02/20/20 18:01 02/20/20 18:39 Saline Flush FLUSH 2.5 ml ASDIRECTED PRN Administration Keep Vein Open Discontinued Medications Generic Name Dose Route Start Last Admin Trade Name Freq PRN Reason Stop Dose Admin Sodium Chloride 1,000 mls @ 999 mls/hr 02/20/20 18:01 02/20/20 18:35 Normal Saline IV 02/20/20 19:01 999 mls/hr BOLUS ONE Administration Ceftriaxone Sodium/Dextrose 1 50 mls @ 100 mls/hr 02/20/20 21:08 02/20/20 21:32 gm/ Premix IV 02/20/20 21:37 100 mls/hr ONETIME ONE Administration Ketorolac Tromethamine 30 mg 02/20/20 18:02 02/20/20 18:37 Toradol IVPUSH 02/20/20 18:03 30 mg ONETIME ONE Administration Morphine Sulfate 2 mg 02/20/20 21:16 02/20/20 21:34 Morphine IVPUSH 02/20/20 21:17 2 mg ONETIME ONE Administration Ondansetron HCl 4 mg 02/20/20 18:50 02/20/20 19:00 Zofran IVPUSH 02/20/20 18:51 4 mg ONETIME ONE Administration Departure - Departure Time of Disposition: 21:16 Disposition: Home, Self-Care 01 Clinical Impression: Pyelonephritis - Discharge Information Prescriptions: Sulfamethoxazole/Trimethoprim [Bactrim Ds Tablet] 1 each PO BID 14 Days #28 tablet traMADol HCl [Tramadol HCl] 50 mg PO Q6H PRN #10 tablet PRN Reason: Pain (Severe 7-10) Ondansetron [Zofran ODT] 4 mg PO Q6H PRN #8 tab.dis PRN Reason: Nausea/Vomiting Referrals: Zhane Painter DO [Primary Care Provider] - Forms: ED Department Discharge Additional Instructions: The following information is given to patients seen in the emergency department who are being discharged to home. This information is to outline your options for follow-up care. We provide all patients seen in our emergency department with a follow-up referral. The need for follow-up, as well as the timing and circumstances, are variable depending upon the specifics of your emergency department visit. If you don't have a primary care physician on staff, we will provide you with a referral. We always advise you to contact your personal physician following an emergency department visit to inform them of the circumstance of the visit and for follow-up with them and/or the need for any referrals to a consulting specialist. The emergency department will also refer you to a specialist when appropriate. This referral assures that you have the opportunity for follow-up care with a specialist. All of these measure are taken in an effort to provide you with optimal care, which includes your follow-up. Under all circumstances we always encourage you to contact your private physician who remains a resource for coordinating your care. When calling for follow-up care, please make the office aware that this follow-up is from your recent emergency room visit. If for any reason you are refused follow-up, please contact the [facility] Emergency Department at and asked to speak to the emergency department charge nurse. [facility] [address] [place] [address] [facility] [address] [place] [address] 1. Take medication as prescribed. You can also alternate ibuprofen and Tylenol as directed for pain and discomfort. 2. Follow-up with your primary care provider as discussed. Return to the ED as needed and as discussed. Sepsis Event Note (ED) - Evaluation Sepsis Screening Result: No Definite Risk - Focused Exam Vital Signs: Vital Signs Temp Pulse Resp BP Pulse Ox 02/20/20 18:45 68 17 118/67 94 L 02/20/20 17:10 96.5 F L 62 18 155/73 H 96 - My Orders Last 24 Hours: My Active Orders 02/20/20 16:30 CULTURE URINE [RM] Stat 02/20/20 18:01 Sodium Chloride 0.9% [Saline Flush] 10 ml FLUSH ASDIRECTED PRN Sodium Chloride 0.9% [Saline Flush] 2.5 ml FLUSH ASDIRECTED PRN Saline Lock Insert [OM.PC] Stat 02/20/20 18:02 EKG Documentation Completion [RC] STAT - Assessment/Plan Last 24 Hours: My Active Orders 02/20/20 16:30 CULTURE URINE [RM] Stat 02/20/20 18:01 Sodium Chloride 0.9% [Saline Flush] 10 ml FLUSH ASDIRECTED PRN Sodium Chloride 0.9% [Saline Flush] 2.5 ml FLUSH ASDIRECTED PRN Saline Lock Insert [OM.PC] Stat 02/20/20 18:02 EKG Documentation Completion [RC] STAT
--- NOTE | 2020-02-20 18:31 | PCM.SN.2 ---
- Free Text/Narrative Note: EKG Time 623 Rate 68 NSR no MAMIE
[2020-02-20] MEDS ORDERED: Ondansetron 4 MG/2 ML SDV IVPUSH ONE (18:50)
[2020-02-20 19:13] LABS: BLOOD UREA NITROGEN,BUN 16 mg/dL (7.0-18.0); CARBON DIOXIDE,CO2 25.7 mmol/L (21.0-32.0); CHLORIDE,CL 101 mmol/L (98-107); GLUCOSE RANDOM 145 mg/dL (74-106); LIPASE 74 U/L (73-393); POTASSIUM,K 4.1 mmol/L (3.5-5.1); SODIUM,NA 140 mmol/L (136-145)
--- NOTE | 2020-02-20 19:47 | CR ---
INDICATION: Pain/shortness of breath. TECHNIQUE: Chest 1 view. COMPARISON: None. FINDINGS: Right basilar atelectasis. No focal consolidation, pleural effusion, pneumothorax. There is relative increased lucency within the right midlung medially which could represent air trapping. Heart size upper limits of normal. Normal pulmonary vascularity. The bones are unremarkable. IMPRESSION: 1. No acute cardiopulmonary findings. 2. Probable air trapping in the right midlung. Dictated by Estela Allen MD @ Feb 20 2020 7:42PM Signed by Dr. Estela Allen @ Feb 20 2020 7:45PM
--- NOTE | 2020-02-20 20:23 | CT ---
Indication: Left-sided abdominal pain Technique: Volumetric multidetector CT images of the abdomen and pelvis were without the administration of intravenous contrast. Comparison: CT abdomen and pelvis October 09, 2019 Findings: There is bibasilar atelectasis and parenchymal scar again seen. There is hepatomegaly and hepatic steatosis similar to previous exam. There is a moderately hydropic appearing gallbladder with hyperdense fluid which may represent gallbladder sludge with nondependent cholesterol stones in the fundus. There is no significant common biliary ductal dilatation or abrupt cut off. The spleen is mildly enlarged measuring 15 centimeters. There is no focal abnormality. The stomach and duodenum are grossly unremarkable. There is mild to moderate pancreatic atrophy again seen. The adrenal glands are unremarkable. There is demonstration of left-sided perinephric stranding similar to previous exam which may represent sequela of prior inflammatory change. There are punctate nonobstructing calculi in the left collecting system without definite evidence of distal obstructing calculus. The right kidney is grossly unremarkable. There is a [id number] amount of stool seen throughout the colon with minimal colonic diverticulosis without evidence of diverticulitis. The appendix is unremarkable. There is no significant mesenteric, retroperitoneal, or pelvic sidewall lymph nodes. The aorta is not aneurysmal. There is minimal scattered atherosclerotic calcification. Again seen are tubal ligation clips in the bilateral adnexa otherwise the pelvic viscera are grossly within normal limits. There is no free fluid or free air. The anterior abdominal wall is intact without significant hernias. The lumbar vertebral body heights are grossly maintained with [id number] multilevel degenerative disc disease. There is no spondylolisthesis or displaced fracture. Impression: There is demonstration of left-sided perinephric stranding similar to previous exam which may represent sequela of prior infectious or inflammatory changes. Nonobstructing calculi are seen within the collecting system without evidence of distal obstructing calculus. Stable hepatosplenomegaly. Cholelithiasis is again seen with a mildly hydropic appearing gallbladder. Please note that all CT scans at this facility use dose modulation, iterative reconstruction, and/or weight-based dosing when appropriate to reduce radiation dose to as low as reasonably achievable. Dictated by Enzo Rocha MD @ Feb 20 2020 8:14PM Signed by Dr. Enzo Rocha @ Feb 20 2020 8:22PM
[2020-02-20] MEDS ORDERED: cefTRIAXone 1 GM in Premix Bag 1 BAG IV ONE (21:08)
[2020-02-20] MEDS ORDERED: Morphine 2 MG/ML SYRINGE IVPUSH ONE (21:16)
== END 2020-02-20 22:11 | disposition home or self-care (01) ==
LOC: MW.ED 16:39
DX: N12 Tubulo-interstitial nephritis, not specified as acute or chronic (principal); I10 Essential (primary) hypertension; F41.9 Anxiety disorder, unspecified; E11.9 Type 2 diabetes mellitus without complications; Z68.34 Body mass index [BMI] 34.0-34.9, adult
CPT/HCPCS: 36415; 71045; 74176; 80053; 81001; 81025; 83690; 84484; 85025; 87086; 93005; 96365; 96375; 99284; J0696; J1885; J2270; J2405; J7030; 93010; 99283

== ENCOUNTER 2021-07-19 11:18 | Emergency (ER) | payer BC ==
[2021-07-19] MEDS ORDERED: Sodium Chloride 0.9% 2.5 ML Syringe FLUSH PRN (11:24)
[2021-07-19] MEDS ORDERED: Sodium Chloride 0.9% 10 ML Syringe FLUSH PRN (11:24)
[2021-07-19] MEDS ORDERED: Ondansetron 4 MG/2 ML SDV IVPUSH ONE (11:40)
[2021-07-19 12:24] LABS: CARBON DIOXIDE,CO2 23.2 mmol/L (21.0-32.0); POTASSIUM,K 3.6 mmol/L (3.5-5.1)
[2021-07-19] MEDS ORDERED: Aspirin 81 MG Tab.Chew PO ONE (12:30)
[2021-07-19] MEDS ORDERED: Sodium Chloride 0.9% 1,000 ML IV ONE (12:44)
[2021-07-19 12:45] LABS: CORONAVIRUS COVID-19 NAA NEGATIVE (NEGATIVE); INFLUENZA A NAA NEGATIVE (NEGATIVE); INFLUENZA B NAA NEGATIVE (NEGATIVE)
[2021-07-19] MEDS ORDERED: Heparin Sodium/0.45% NaCl 500 ML IV SCH (12:45)
[2021-07-19] MEDS: Heparin Sodium 5,000 Units/ML Vial IVPUSH ONE ×2 (12:48→16:29)
[2021-07-19] MEDS ORDERED: Heparin Sodium 5,000 Units/ML Vial IVPUSH ONE (13:00)
[2021-07-19] MEDS ORDERED: Rosuvastatin 10 MG Tab PO ONE (13:22)
[2021-07-19] MEDS ORDERED: Furosemide 40 MG/4 ML VIAL IVPUSH ONE (13:22)
== END 2021-07-19 14:37 ==
LOC: MW.ED 11:18
DX: I21.4 Non-ST elevation (NSTEMI) myocardial infarction (principal); N17.9 Acute kidney failure, unspecified; R79.1 Abnormal coagulation profile; R74.01 Elevation of levels of liver transaminase levels; I10 Essential (primary) hypertension; E11.9 Type 2 diabetes mellitus without complications; Z79.899 Other long term (current) drug therapy; Z20.822 Contact with and (suspected) exposure to COVID-19
CPT/HCPCS: 0240U; 36415; 71045; 80053; 83880; 84484; 85025; 85379; 93005; 96365; 96366; 96375; 96376; 99291; A9270; J1644; J2405; J3490; J7030